=== PATIENT | male | born 1995 | race Caucasian/White ===

== ENCOUNTER 2023-01-19 19:56 | Emergency (ER) | payer MEDICAID ==
[~2023-01-19] VITALS: Ht 175.3 cm; Wt 70.3 kg
[2023-01-19 20:02] VITALS: BP 131/79; PULSE 52; RESP 16; TEMP 98; O2SAT 96
[2023-01-19] MEDS ORDERED: LIDOCAINE 5% 1 EA PATCH TP ONE (22:35)
[2023-01-19] MEDS ORDERED: IBUPROFEN 600 MG TAB PO ONE (22:35)
[2023-01-19] MEDS ORDERED: IBUP-2218 PO (23:27)
[2023-01-19] MEDS ORDERED: CYCL-711 PO (23:27)
[2023-01-19] MEDS ORDERED: ACET-10509 PO (23:27)
== END 2023-01-19 23:35 | disposition home or self-care (01) ==
LOC: MED 19:56
DX: M54.50 Low back pain, unspecified (principal); Z79.899 Other long term (current) drug therapy
CPT/HCPCS: 72110; 99283